=== PATIENT | female | born 1975 | race African-American/Black ===

== ENCOUNTER 2023-06-29 21:00 | Emergency (ER) | payer OTHER, SELFPAY ==
--- NOTE | ~2023-06-29 | CT_ITS ---
EXAMINATION: CT ABDOMEN AND PELVIS WITH CONTRAST CLINICAL INFORMATION: Right lower quadrant, right flank pain. COMPARISON: None available. TECHNIQUE: Multidetector volumetric images were obtained from the superior aspect of the liver through the pubic symphysis following administration 85 mL of Omnipaque 350 intravenous contrast. Sagittal and coronal reformatted images were obtained on the technologist's workstation. Oral contrast: No This CT examination was performed using dose optimization techniques as appropriate, variously including the following: *Automated exposure control *Adjustment of mA and/or kV according to patient size (this includes techniques or standardized protocols for targeted exams where dose is matched to indication/reason for exam; i.e. extremities or head) *Use of iterative reconstruction technique DLP: 745 mGy-cm FINDINGS: LUNG BASES: The visualized lung bases are unremarkable. LIVER, GALLBLADDER, AND BILIARY TREE: The liver is normal in size, shape, and attenuation. No focal hepatic lesion or biliary ductal dilatation is present. The gallbladder is unremarkable with no evidence of radiopaque gallstones, gallbladder wall thickening, or obvious pericholecystic inflammatory changes. PANCREAS: Unremarkable. SPLEEN: Unremarkable. ADRENAL GLANDS: Unremarkable. KIDNEYS AND URETERS: The kidneys are normal in size, shape, and attenuation. No hydronephrosis, hydroureter, or calculi seen. No perinephric stranding. BLADDER: Unremarkable. GASTROINTESTINAL TRACT: The small and large bowel are unremarkable. The appendix is unremarkable. ABDOMINAL WALL: No significant hernia is appreciated. LYMPH NODES: Normal. VASCULAR: Unremarkable. PELVIC VISCERA: The uterus and adnexa are unremarkable. OSSEOUS STRUCTURES: No acute or suspicious osseous abnormality. Degenerative change at L5-S1 with vacuum disc phenomenon. CT/CT abdomen pelvis w IV con IMPRESSION: No acute findings in the abdomen or pelvis. No inflammatory changes. Normal appendix. Fleischner guidelines were followed.
[2023-06-29 21:06] VITALS: BP 154/90; PULSE 80; O2SAT 98
[2023-06-29 21:37] VITALS: BP 142/87; PULSE 69; RESP 16; TEMP 36.4; O2SAT 100; BMI 32.0
[2023-06-29 22:27] LABS: MANUAL DIFF FLAG NO
[2023-06-29 22:35] LABS: Basophils Absolute Auto 0.1 X10*3/uL (0.0-0.2); Basophils Percent Auto 1.2 % (0-2); Eosinophils Absolute Auto 0.7 X10*3/uL (0.0-0.4); Hematocrit 35.4 % (37.0-47.0); Hemoglobin 11.3 g/dl (12.0-16.0); Imm Gran Abs Auto 0.03 X10*3/uL (0.00-0.03); Imm Gran Pct Auto 0.4 % (0.0-0.4); Lymphocytes Percent Auto 36.2 % (20-40); Mean Corpuscular HGB Conc 31.9 g/dl (31.0-35.0); Mean Corpuscular Hemoglobin 23.8 pg (27.0-33.0); Mean Corpuscular Volume 74.7 fL (80.0-98.0); Monocytes Absolute Auto 0.5 X10*3/uL (0.1-1.2); Monocytes Percent Auto 6.6 % (2-11); Neutrophils Absolute Auto 3.9 x10*3/uL (2.0-8.3); Neutrophils Percent Auto 47.6 % (45-73); Platelet Count 396 X10*3/uL (160-400); Red Blood Count 4.74 X10*6/uL (4.20-5.50); Red Cell Distribution Width 15.6 % (11.0-16.0); White Blood Count 8.2 X10*3/uL (4.8-10.8)
[2023-06-29 22:42] LABS: Alanine Aminotransferase 10 U/L (0-31); Alkaline Phosphatase 84 U/L (39-117); Anion Gap 13 (12-20); Aspartate Amino Transferase 11 U/L (5-31); Bilirubin Total 0.4 mg/dL (0.0-1.0); Blood Urea Nitrogen 15 mg/dL (9-16); Calcium 9.8 mg/dL (8.4-10.2); Carbon Dioxide 25 mmol/L (22-29); Chloride 103 mmol/L (96-108); Creatinine Clr Calc Pharmacy 99.3; Estimated Glomerular Filt Rate > 60; Glucose Random 204 mg/dL (60-115); Potassium 4.9 mmol/L (3.3-5.1); Sodium 136 mmol/L (135-145); Total Protein 7.6 g/dL (6.5-8.0)
[2023-06-30 01:36] VITALS: BP 135/81; PULSE 72; RESP 17; TEMP 37.1; O2SAT 99
--- NOTE | 2023-06-30 03:27 | ED.ABDPAIN ---
HPI - Abdominal Pain General Chief Complaint: Abdominal Pain Stated Complaint: abd pain Time Seen by Provider: 06/30/23 03:06 Source: patient and family () Mode of arrival: EMS Limitations: language barrier (Patient speaks Beninese Creole, iPad Beninese Creole electronic die maker used) History of Present Illness HPI narrative: 48-year-old female who presents emergency department for evaluation of sudden onset of abdominal pain that began at 19:00 hours. Patient states the pain started suddenly on her right lower quadrant area and right flank area. She describes the pain is intermittent, cramping, gas like pain which is 8/10 at its worst. This is her 1st episode of this type of pain. She denied fever, chills, chest pain, shortness of breath, dyspnea on exertion. She had no nausea vomiting. She did have 3 loose diarrheal stools in the emergency department. She did note urinary frequency but no dysuria. She denied any dark black stools or bloody stools. Related Data Previous Rx's Medication Instructions Recorded acetaminophen 500 mg tablet 500 mg PO Q6H PRN fever or pain 06/30/23 (Tylenol Extra Strength) #30 tabs ibuprofen 400 mg tablet 400 mg PO TID PRN fever or pain 06/30/23 #30 tabs ondansetron 4 mg disintegrating 4 mg PO Q6-8H PRN nausea and 06/30/23 tablet vomiting #14 tabs Allergies Allergy/AdvReac Type Severity Reaction Status Date / Time No Known Allergies Allergy Verified 06/30/23 03:23 Review of Systems Review of Systems Yes all other systems are reviewed and are negative [facility] Past Medical History [facility] Narrative: Past medical history: Hypertension with 2 years prior. Surgical history: None. Social history: She denies tobacco, alcohol and drug use. Social History Social History Smoked in Last 30 Days: No Use of substances other than those prescribed or required for medical reasons: No Advance Directives: No Advance Directives Information Provided: Yes Physical Exam ED Vital Signs: Vital Signs - 24 hr 06/29/23 21:37 06/30/23 01:36 06/30/23 04:00 Temperature 97.5 F 98.7 F Pulse Rate 69 72 68 Respiratory Rate 16 17 20 Blood Pressure 142/87 H 135/81 150/65 H Pulse Oximetry 100 99 98 Oxygen Delivery Method Room Air Room Air Room Air 06/30/23 06:23 Temperature 98.3 F Pulse Rate 75 Respiratory Rate 16 Blood Pressure 146/80 H Pulse Oximetry 100 Oxygen Delivery Method Room Air BMI result Body Mass Index 32.0 Vital signs were normal Exam: General: Awake, alert in no distress, elevated BMI 32.0 Head: Normocephalic, atraumatic EENT: PERRL, Lids normal, sclera normal, conjunctiva normal, nose normal , ears normal, throat without erythema or exudates Neck: Supple, no adenopathy, trachea midline and nontender Lung: breath sounds symmetric, no wheezing, rales or rhonchi Chest: symmetric movement, nontender Heart: regular rate and rhythm, normal S1, S2 no murmurs or rubs Abdomen: soft, moderate right lower quadrant tenderness, mild epigastric tenderness, nondistended, normal bowel sounds Back: no vertebral tenderness, mild right CVAT, no left CVA tenderness Extremities: no deformities, moves all extremities symmetrically Skin: no rashes, no lesion, normal color and warmth Neuro: Awake, alert, oriented, normal speech, cranial nerves intact, moves all extremities symmetrically Psych: Pleasant, cooperative Medical Decision Making Medical Decision Making MDM Narrative: 48-year-old female with no significant past medical or surgical history who presents emergency department for evaluation of sudden onset of right lower quadrant and right flank pain which began at 19:00 hours. She states the pain is been intermittent and she describes the pain as a cramping/gas like pain. This is a 1st episode of this type of pain. The pain was 8 out 10 its worst. She did have associated frequency but no dysuria. She had 3 episodes of diarrhea with no dark stools or bloody stools. Patient's vital signs were normal. Patient's exam did reveal moderate right lower quadrant tenderness and mild to moderate right flank/CVA tenderness. Following evaluation was ordered: CBC, CMP, lipase, quantitative beta-hCG, urinalysis, CT scan of the abdomen pelvis with IV contrast. I ordered Toradol 15 mg IV for her pain and Zofran 4 mg IV. She also received normal saline x1 L. 0634: Patient's laboratory evaluation was unremarkable. Patient's CT scan of the abdomen pelvis with IV contrast did not reveal a clear cause for the patient's pain, patient's appendix was visualized and appear to be normal. No renal or ureteral stones were noted. The patient states she is feeling better after the above treatment. This time I do not have a clear etiology for the patient's pain. Patient was prescribed ibuprofen, Tylenol and Zofran. She was given printed and verbal instructions and discharged home. Differential Diagnosis Differential Diagnoses: The differential diagnosis associated with the presentation includes Differential diagnosis includes was not limited to urinary tract infection, pyelonephritis, renal colic, ureteral colic, ureteral stone, appendicitis, pancreatitis, anemia, electrolyte abnormality Admission/Observation Consideration of admission/observation: Escalation of care including admission/observation considered Lab Data MDM Lab Attestation statement: I reviewed the patient's lab results. My interpretation the patient's laboratory evaluation is as follows: WBC was normal 8200. Anemia with an H&H of 11.3 and 35.4. Platelet count was normal. Glucose was elevated to 0 4. Quantitative beta hCG was below detectable limits. Urinalysis revealed 3+ leukocyte esterase. Microscopic revealed 0-2 RBCs, greater than 50 WBCs, 10-20 squamous cells 1+ bacteria-this is not a clean-catch specimen. 06/29/23 22:22 06/29/23 22:22 Labs: Lab Results 06/29/23 06/29/23 06/30/23 Range/Units 22:22 22:22 03:40 WBC 8.2 (4.8-10.8) X10*3/uL RBC 4.74 (4.20-5.50) X10*6/uL Hgb 11.3 L (12.0-16.0) g/dl Hct 35.4 L (37.0-47.0) % MCV 74.7 L (80.0-98.0) fL MCH 23.8 L (27.0-33.0) pg MCHC 31.9 (31.0-35.0) g/dl RDW 15.6 (11.0-16.0) % Plt Count 396 (160-400) X10*3/uL MPV 9.0 L (9.4-12.3) fL Immature Gran % (Auto) 0.4 (0.0-0.4) % Neut % (Auto) 47.6 (45-73) % Lymph % (Auto) 36.2 (20-40) % Thomas % (Auto) 6.6 (2-11) % Eos % (Auto) 8.0 H (0-4) % Baso % (Auto) 1.2 (0-2) % Lymph # (Auto) 3.0 (1.2-4.9) X10*3/uL Thomas # (Auto) 0.5 (0.1-1.2) X10*3/uL Eos # (Auto) 0.7 H (0.0-0.4) X10*3/uL Baso # (Auto) 0.1 (0.0-0.2) X10*3/uL Abs Immat Gran (auto) 0.03 (0.00-0.03) X10*3/uL Absolute Neuts (auto) 3.9 (2.0-8.3) x10*3/uL Absolute Nucleated RBC 0.000 (0.0-0.012) X10*3/uL Nucleated RBC % (auto) 0.0 (0.0-0.2) /100WBC Sodium 136 (135-145) mmol/L Potassium 4.9 (3.3-5.1) mmol/L Chloride 103 (96-108) mmol/L Carbon Dioxide 25 (22-29) mmol/L Anion Gap 13 (12-20) BUN 15 (9-16) mg/dL Creatinine 0.80 (0.5-1.4) mg/dL Estim Creat Clear Calc 99.3 Estimated GFR > 60 Random Glucose 204 H (60-115) mg/dL Calcium 9.8 (8.4-10.2) mg/dL Total Bilirubin 0.4 (0.0-1.0) mg/dL AST 11 (5-31) U/L ALT 10 (0-31) U/L Alkaline Phosphatase 84 (39-117) U/L Total Protein 7.6 (6.5-8.0) g/dL Albumin 4.0 (3.5-5.0) g/dL Lipase 18 (8-78) U/L Beta HCG, Quant < 2 mIU/mL Urine Color Yellow Urine Appearance Cloudy Urine pH 5.5 (5.0-9.0) Ur Specific [place] 1.010 (1.005-1.025) Urine Protein Negative (Neg-Trace) mg/dL Urine Glucose (UA) Negative (Negative) mg/dL Urine Ketones Negative (Negative) mg/dL Urine Blood Negative (Negative) Urine Nitrite Negative (Negative) Ur Leukocyte Esterase Large (3+) H (Negative) Urine RBC 0-2 (0-2) /HPF Urine WBC >50 H (0-5) /HPF Ur Squamous Epith Cells 11-20 (0-2) /HPF Urine Bacteria 1+ (None Seen) Hyaline Casts 0-2 (0-2) /LPF Urine Test 06/30/23 Range/Units 03:40 WBC (4.8-10.8) X10*3/uL RBC (4.20-5.50) X10*6/uL Hgb (12.0-16.0) g/dl Hct (37.0-47.0) % MCV (80.0-98.0) fL MCH (27.0-33.0) pg MCHC (31.0-35.0) g/dl RDW (11.0-16.0) % Plt Count (160-400) X10*3/uL MPV (9.4-12.3) fL Immature Gran % (Auto) (0.0-0.4) % Neut % (Auto) (45-73) % Lymph % (Auto) (20-40) % Thomas % (Auto) (2-11) % Eos % (Auto) (0-4) % Baso % (Auto) (0-2) % Lymph # (Auto) (1.2-4.9) X10*3/uL Thomas # (Auto) (0.1-1.2) X10*3/uL Eos # (Auto) (0.0-0.4) X10*3/uL Baso # (Auto) (0.0-0.2) X10*3/uL Abs Immat Gran (auto) (0.00-0.03) X10*3/uL Absolute Neuts (auto) (2.0-8.3) x10*3/uL Absolute Nucleated RBC (0.0-0.012) X10*3/uL Nucleated RBC % (auto) (0.0-0.2) /100WBC Sodium (135-145) mmol/L Potassium (3.3-5.1) mmol/L Chloride (96-108) mmol/L Carbon Dioxide (22-29) mmol/L Anion Gap (12-20) BUN (9-16) mg/dL Creatinine (0.5-1.4) mg/dL Estim Creat Clear Calc Estimated GFR Random Glucose (60-115) mg/dL Calcium (8.4-10.2) mg/dL Total Bilirubin (0.0-1.0) mg/dL AST (5-31) U/L ALT (0-31) U/L Alkaline Phosphatase (39-117) U/L Total Protein (6.5-8.0) g/dL Albumin (3.5-5.0) g/dL Lipase (8-78) U/L Beta HCG, Quant mIU/mL Urine Color Urine Appearance Urine pH (5.0-9.0) Ur Specific [place] (1.005-1.025) Urine Protein (Neg-Trace) mg/dL Urine Glucose (UA) (Negative) mg/dL Urine Ketones (Negative) mg/dL Urine Blood (Negative) Urine Nitrite (Negative) Ur Leukocyte Esterase (Negative) Urine RBC (0-2) /HPF Urine WBC (0-5) /HPF Ur Squamous Epith Cells (0-2) /HPF Urine Bacteria (None Seen) Hyaline Casts (0-2) /LPF Urine Test Cancelled Radiology Impression Discussion of test interpretation with radiology: I have reviewed the radiologist's reading. Radiologist Impression: CT abdomen pelvis w IV con FINDINGS: LUNG BASES: The visualized lung bases are unremarkable. LIVER, GALLBLADDER, AND BILIARY TREE: The liver is normal in size, shape, and attenuation. No focal hepatic lesion or biliary ductal dilatation is present. The gallbladder is unremarkable with no evidence of radiopaque gallstones, gallbladder wall thickening, or obvious pericholecystic inflammatory changes. PANCREAS: Unremarkable. SPLEEN: Unremarkable. ADRENAL GLANDS: Unremarkable. KIDNEYS AND URETERS: The kidneys are normal in size, shape, and attenuation. No hydronephrosis, hydroureter, or calculi seen. No perinephric stranding. BLADDER: Unremarkable. GASTROINTESTINAL TRACT: The small and large bowel are unremarkable. The appendix is unremarkable. ABDOMINAL WALL: No significant hernia is appreciated. LYMPH NODES: Normal. VASCULAR: Unremarkable. PELVIC VISCERA: The uterus and adnexa are unremarkable. OSSEOUS STRUCTURES: No acute or suspicious osseous abnormality. Degenerative change at L5-S1 with vacuum disc phenomenon. IMPRESSION: No acute findings in the abdomen or pelvis. No inflammatory changes. Normal appendix. Fleischner guidelines were followed. Dictated By:Roger Coffey MD Independent Historian Clinical information obtained from an independent historian. History obtained from or confirmed by: Spouse Prescription Management I considered prescription management with: Pain Medication and Other (Antiemetics) Chronic Conditions Patient?s care impacted by: Hypertension Medications Administered Discontinued Medications Generic Name Dose Route Start Last Admin Trade Name Freq PRN Reason Stop Dose Admin Sodium Chloride 1,000 mls @ 999 mls/hr 06/30/23 03:26 06/30/23 03:48 Ns IV 06/30/23 04:26 999 mls/hr .Q1H1M STA Administration Iohexol 85 ml 06/30/23 04:22 06/30/23 04:22 Iohexol 350 Mg/Ml 100 Ml Infus..Btl IV 06/30/23 04:23 85 ml ONCE ONE Administration Ketorolac Tromethamine 15 mg 06/30/23 03:26 06/30/23 03:48 Ketorolac Tromethamine 15 Mg/Ml Vial IVPUSH 06/30/23 03:27 15 mg ONCE STA Administration Ondansetron HCl 4 mg 06/30/23 03:26 06/30/23 03:48 Ondansetron Hcl 4 Mg/2 Ml Vial IVPUSH 06/30/23 03:27 4 mg ONCE ONE Administration Discharge Plan Discharge Clinical Impression: Abdominal pain Patient Disposition: Home, Self-Care Instructions: Abdominal Pain (ED) Additional Instructions: Your blood work was normal. The CT scan of your abdomen pelvis with IV contrast did not reveal a clear cause for your pain. This is reassuring. Take Zofran ODT 4 mg pills, 1 pill dissolved in your mouth every 8 hours as needed for nausea and vomiting. Take ibuprofen 200 mg pills, 2 pills every 6 hours as needed for pain or fever. Take Tylenol (acetaminophen) 500 mg pills, 2 pills every 6 hours as needed for pain or fever. Follow-up with your doctor in 2 days. Please return to the emergency department if your symptoms get worse or if you develop any symptoms that are concerning to you. I sent your prescriptions to our Outpatient Pharmacy([facility]). You should pick these medications up when you leave the emergency department Prescriptions: New acetaminophen [Tylenol Extra Strength] 500 mg tablet 500 mg PO Q6H PRN (Reason: fever or pain) Qty: 30 0RF ibuprofen 400 mg tablet 400 mg PO TID PRN (Reason: fever or pain) Qty: 30 0RF ondansetron 4 mg tablet,disintegrating 4 mg PO Q6-8H PRN (Reason: nausea and vomiting) Qty: 14 0RF
[2023-06-30 03:44] LABS: Lipase 18 U/L (8-78)
[2023-06-30] MEDS: Ketorolac Tromethamine 15 MG/ML VIAL IVPUSH (03:48)
[2023-06-30] MEDS: ondansetron HCL 4 MG/2 ML VIAL IVPUSH (03:48)
[2023-06-30] MEDS: 0.9 % Sodium Chloride 1,000 ML 999 ML IV (03:48)
[2023-06-30 03:51] LABS: HCG Quantitative < 2 mIU/mL
[2023-06-30 04:00] VITALS: BP 150/65; PULSE 68; RESP 20; O2SAT 98
[2023-06-30 04:05] LABS: Appearance Urine Cloudy; Color Urine Yellow; Glucose Urine UA Negative (Negative); Leukocyte Esterase Urine Large (3+) (Negative); Nitrite Urine Negative (Negative); PH 5.5 (5.0-9.0); UMIC TRIGGER UACC YES; Urine Blood Negative (Negative); Urine Ketones Negative (Negative); Urine Protein Negative (Neg-Trace)
[2023-06-30 04:10] LABS: Bacteria Urine 1+ (None Seen); Hyaline Casts Urine 0-2 /LPF (0-2); RBC Urine 0-2 /HPF (0-2); UACC Culture Trigger YES; WBC Urine >50 /HPF (0-5)
[2023-06-30] MEDS: iohexoL 350 MG/ML 100 ML INFUS..BTL 85 ML IV (04:22)
--- NOTE | 2023-06-30 04:46 | PC.NURSE ---
this rn and dr barraza at bedside for assessment. ipad grounds/maintenance specialist utilized for assessment in [facility]. pt provided urine sample. this rn placed 20g iv in R AC. pt medicated according to mar. pt at bedside pt awaiting ct scan
[2023-06-30 06:23] VITALS: BP 146/80; PULSE 75; RESP 16; TEMP 36.8; O2SAT 100
--- NOTE | 2023-06-30 07:35 | PC.NURSE ---
assumed care of pt at 0700. pt discharged upon report, awaiting transportation plan for pt back to home with . called hospital transportation van x2, spoke with staff member second time calling and was told they were going to call back with a schedueled time for pt. awaiting call back. will follow up
[2023-06-30 08:24] VITALS: BP 105/61; PULSE 75; RESP 16; TEMP 36.9; O2SAT 100
[2023-06-30 09:21] VITALS: BP 124/68; PULSE 70; RESP 20; TEMP 36.7; O2SAT 99
--- NOTE | 2023-06-30 09:25 | PC.NURSE ---
lang interpreter services on way to bring iPad
--- NOTE | 2023-06-30 09:25 | PC.NURSE ---
attempt x2 to call transport line- left voicemail- for pt ride home. notifying rn charge at this time unable to get in touch w/them. pt resting, calm, coop. no respir. distress.
--- NOTE | 2023-06-30 09:51 | PC.NURSE ---
used laila ramirez cregalileo associate professor of geology to provide discharge instructions, pt verbalized understanding, pt discharged and left facility.
--- NOTE | 2023-06-30 09:58 | PC.NURSE ---
certified court interpreter laila butcher ipad used for d/c instructions. piv out. pt calm, coop. no pain reported. VSS. walked to with family member- given van ticket and shown to main pharmacy/entrance. aox4.
== END 2023-06-30 09:53 | disposition home or self-care (01) ==
PROVIDERS: Emergency Provider Emergency Medicine Emergency Medical Services
DX: R10.2 Pelvic and perineal pain (principal); R10.31 Right lower quadrant pain; R19.7 Diarrhea, unspecified; Z79.899 Other long term (current) drug therapy
CPT/HCPCS: 36415; 74177; 80053; 81001; 81003; 83690; 84702; 85025; 87086; 99285; J1885; J2405; Q9967

== ENCOUNTER 2025-06-09 22:50 | Emergency (ER) | payer OTHER, SELFPAY ==
[2025-06-09 23:06] VITALS: BP 146/88; PULSE 84; RESP 18; O2SAT 99; BMI 37.8
[2025-06-10] MEDS: Fluorescein Sodium STRIP 1 STRIP EYE-LEFT (00:22)
[2025-06-10] MEDS: Tetracaine HCl/PF 0.5% Oph Sol 4 ML DROPS 3 DROP EYE-BOTH (00:23)
--- NOTE | 2025-06-10 00:34 | ED.EYEPROB ---
HPI - Eye Problem General Chief complaint: Eye Problems Stated complaint: poked in the left eye Time Seen by Provider: 06/09/25 23:26 Source: patient and hourly sign language interpreter Mode of arrival: ambulatory Limitations: language barrier History of Present Illness ED Provider: Dr. Mona Hairston HPI Narrative: 50-year-old female with no significant past medical history presenting with left eye pain that began 3 days ago after she was poked in the eye by 1 of her kids with a figurine. Has been having pain since that time and is now unable to open her eye fully due to the pain. When she is able to open her eyelid however, her vision is rather normal. No other injuries. Describes a frontal headache associated with the eye pain. Has been feeling well previously. Related Data Previous Rx's ?Medication ?Instructions ?Recorded acetaminophen 500 mg tablet 500 mg PO Q6H PRN fever or pain 06/30/23 (Tylenol Extra Strength) #30 tabs ibuprofen 400 mg tablet 400 mg PO TID PRN fever or pain 06/30/23 #30 tabs ondansetron 4 mg disintegrating 4 mg PO Q6-8H PRN nausea and 06/30/23 tablet vomiting #14 tabs ibuprofen 200 mg tablet 400 mg (2 x 200 mg) PO Q8H PRN 06/10/25 pain #30 tabs simethicone 180 mg capsule 180 mg PO BID PRN abdominal 06/10/25 distention #20 caps Allergies Allergy/AdvReac Type Severity Reaction Status Date / Time No Known Allergies Allergy Verified 06/09/25 23:10 Review of Systems Review of Systems: as per HPI, full review of systems performed and negative but for the above mentioned pertinent positives and negatives. [facility] Past Medical History Attestation statement: The following information was validated with the patient. (denies PMH, nonsmoker) Social History Social History Smoked in Last 30 Days: No Use of substances other than those prescribed or required for medical reasons: No Advance Directives: No Advance Directives Information Provided: Yes Physical Exam Exam: Exam: GENERAL: Ill-Appearing, appears uncomfortable. SKIN: Normal skin color for ethnicity, warm, dry, no rashes noted. HEENT:? Normocephalic, atraumatic, no stridor, dry mucous membranes, dentition intact, EOMI, PERRLA, L eye with significant chemosis, scleritis, no exudate, no corneal abrasions seen on hameed lamp exam. NECK: Soft, supple, full ROM, midline structures nontender, no step-offs, no deformities, no lymphadenopathy. CHEST: Heart regular rhythm, no murmurs, symmetric chest rise and fall. PULMONARY: Clear to auscultation bilaterally, diminished at the bases, no labored breathing, no wheezes/rhales/rhonchi. ABDOMINAL: Soft, nondistended, nontender, positive bowel sounds in all quadrants. : Deferred. MUSCULOSKELETAL: Normal tone, full range of motion, no deformities, no peripheral edema. NEURO: Alert and oriented x3, CN II through XII intact, equal strength and sensation bilateral upper and lower extremities, no focal neurologic deficits.? PSYCHIATRIC: Flat affect, fluid speech, good eye contact and appropriate demeanor. Vital Signs: Vital Signs: Last Vital Signs Temp 98.5 F 06/10/25 00:58 Pulse 84 06/10/25 00:58 Resp 18 06/10/25 00:58 BP 146/88 H 06/10/25 00:58 Pulse Ox 99 06/10/25 00:58 O2 Del Method Room Air 06/10/25 00:58 BMI result Body Mass Index 37.8 Medications Administered Discontinued Medications Generic Name Dose Route Start Last Admin Trade Name Freq PRN Reason Stop Dose Admin Fluorescein Sodium 1 strip 06/09/25 23:42 06/10/25 00:22 Fluorescein Sodium Strip EYE-LEFT 06/09/25 23:43 1 strip ONCE ONE Administration Ibuprofen 600 mg 06/10/25 00:40 06/10/25 01:02 Ibuprofen 600 Mg Tablet PO 06/10/25 00:41 600 mg ONCE ONE Administration Tetracaine HCl 3 drop 06/09/25 23:42 06/10/25 00:23 Tetracaine Hcl/Pf 0.5% Oph Lesli 4 Ml Drops EYE-BOTH 06/09/25 23:43 3 drop ONCE ONE Administration Medical Decision Making Medical Decision Making MDM Narrative: 50 year old female presenting with left eye trauma 3 days ago. Differential diagnosis includes corneal abrasion, globe rupture, retinal detachment, traumatic iritis, among others. Once her eye was anesthetized, she was able to open it completely and had 20/20 vision out of that eye. No evidence of corneal abrasion on hameed lamp exam with fluorecein stain. US performed by myself at the bedside shows no evidence of globe rupture, vitreous hemorrhage, retinal detachment. Clinical picture consistent with traumatic iritis. Plan for discharge and outpatient ophthalmology follow up. Discussed at length with patient through [place] Creole hourly sign language interpreter. Discharged in stable condition. Differential Diagnosis Differential Diagnoses: The differential diagnosis associated with the presentation includes (as above) Independent Interpretation I performed an independent interpretation of an: Ultrasound Interpretation: EMERGENCY ULTRASOUND INTERPRETATION-Limited Ophthalmic US This study was ordered, performed, and interpreted by myself. The study reveals: Impression: NO PATHOLOGY VISUALIZED Indication:?direct trauma to L eye Anterior Chamber: NO PATHOLOGY VISUALIZED Posterior Chamber: NO PATHOLOGY VISUALIZED Performed by: Mona Hairston DO Date: 06/10/25 Time: 2 CPT: 74225 ; Reference Codes? [email or web address] Independent Historian Clinical information obtained from an independent historian. History obtained from or confirmed by: Spouse Prescription Management I considered prescription management with: Pain Medication Discharge Plan Discharge Clinical Impression: Traumatic iritis, Blunt trauma of left eye Patient Disposition: Home, Self-Care Instructions: Iritis (ED) Additional Instructions: Iritis se enflamasyon nan iris la, hung koul? je ou, souvan ki koze pa yon blesi. Ou ka mireille doul?, wouj?, sansiblite a limy?, vizyon twoub, ou w? k ap flote (pwen nan vizyon ou) S?vi ak gout je ou shaw dokt? ou preskri. Asire ou ke ou lave men ou anvan ak apre ou fin itilize yo. Si ou gen nenp?t kesyon susie gout yo, tanpri mande Evite fwote je ou. Mete feliberto?t pwoteksyon, tankou feliberto?t sekirite oswa feliberto?t g?j, sitou pandan aktivite ki ka lak?z plis blesi Si ou mireille doul? ogmante, p?t vizyon, oswa nenp?t nouvo sent?m, ch?jared swen medikal imedyatman Pran soulaje doul? hobson preskripsyon shaw sa neses?, swiv enstrikchavaon susie etik?t la. Thanh gardner opere jihan si vizyon ou afekte If you do not have a primary care physician, please call the [facility] at [phone] to establish a new primary care physician. While waiting to establish a new primary care physician, you can call our walk-in Care [facility] at [phone] for nonemergency needs. Prescriptions: New ibuprofen 200 mg tablet 400 mg PO Q8H PRN (Reason: pain) Qty: 30 0RF simethicone 180 mg capsule 180 mg PO BID PRN (Reason: abdominal distention) Qty: 20 0RF No Action acetaminophen [Tylenol Extra Strength] 500 mg tablet 500 mg PO Q6H PRN (Reason: fever or pain) Qty: 30 0RF ibuprofen 400 mg tablet 400 mg PO TID PRN (Reason: fever or pain) Qty: 30 0RF ondansetron 4 mg tablet,disintegrating 4 mg PO Q6-8H PRN (Reason: nausea and vomiting) Qty: 14 0RF Interventions: ED Discharge Assessment Last Done: 06/10/25 00:58 Discharge Date/Time: 06/10/25 01:45 Print Language: Lila Frazier
[2025-06-10 00:58] VITALS: BP 146/88; PULSE 84; RESP 18; TEMP 36.9; O2SAT 99
== END 2025-06-10 01:45 | disposition home or self-care (01) ==
PROVIDERS: Emergency Provider Emergency Medicine
DX: S05.8X2A Other injuries of left eye and orbit, initial encounter (principal); H57.12 Ocular pain, left eye; H20.9 Unspecified iridocyclitis; X58.XXXA Exposure to other specified factors, initial encounter; Y93.9 Activity, unspecified; Y92.9 Unspecified place or not applicable; Y99.8 Other external cause status
CPT/HCPCS: 99283; 99284

== ENCOUNTER 2025-08-11 21:04 | Emergency (ER) | payer OTHER, SELFPAY ==
--- NOTE | ~2025-08-11 | XR_ITS ---
CLINICAL HISTORY: pain constipation 1 view abdomen Comparison: None provided Findings: No pneumoperitoneum or pneumatosis. No dilated loops of bowel or evidence for bowel obstruction. Moderate colonic stool burden visualized. Gas is identified over the expected location of the rectum. No acute fractures. IMPRESSION: 1. Nonobstructed bowel-gas pattern. 2. Moderate colonic stool burden. This document has been electronically signed by: Cj Robles MD on 08/12/2025 00:25:01
[2025-08-11 21:54] VITALS: BP 135/78; PULSE 72; RESP 16; TEMP 36.6; O2SAT 99; BMI 30.7
--- NOTE | 2025-08-11 22:07 | ECG_ITS ---
Test Reason : dizziness Blood Pressure : */* mmHG Vent. Rate : 68 BPM Atrial Rate : 68 BPM P-R Int : 190 ms QRS Dur : 90 ms QT Int : 414 ms P-R-T Axes : 25 35 50 degrees QTcB Int : 440 ms Normal sinus rhythm Normal ECG No previous ECGs available Referred By: Generic ED Physician Electronically Signed By: Davie [place]
[2025-08-11 22:27] VITALS: BP 129/78; PULSE 69; RESP 20; TEMP 36.7; O2SAT 97
[2025-08-11 22:39] LABS: MANUAL DIFF FLAG NO
[2025-08-11 22:41] LABS: Appearance Urine Clear; Glucose Urine UA >=1000 mg/dL (Negative); Hematocrit 34.8 % (37.0-47.0); Hemoglobin 11.7 g/dl (12.0-16.0); Imm Gran Abs Auto 0.01 X10*3/uL (0.00-0.03); Imm Gran Pct Auto 0.2 % (0.0-0.4); Lymphocytes Absolute Auto 2.9 X10*3/uL (1.2-4.9); Mean Corpuscular HGB Conc 33.6 g/dl (31.0-35.0); Mean Corpuscular Hemoglobin 23.9 pg (27.0-33.0); Mean Corpuscular Volume 71.2 fL (80.0-98.0); NRBC Abs Auto 0.000 X10*3/uL (0.0-0.012); NRBC Pct Auto 0.0 /100WBC (0.0-0.2); PH 5.5 (5.0-9.0); Platelet Count 325 X10*3/uL (160-400); Red Blood Count 4.89 X10*6/uL (4.20-5.50); Specific Gravity - Urine >= 1.030 (1.005-1.025); UMIC TRIGGER UACC YES; White Blood Count 5.6 X10*3/uL (4.8-10.8)
--- OUTSIDE RECORDS SUMMARY | 2025-08-11 22:53 | XMS_ITS ---
Author Name [facility] Organization Unknown Care Team Organization Name Specialty Phone Email Start Date End Da te [facility] ANTONY TUCKER Primary Care 07/22/2023 4
[2025-08-11 22:59] LABS: Alanine Aminotransferase 11 U/L (0-31); Albumin Level 3.8 g/dL (3.5-5.0); Alkaline Phosphatase 109 U/L (39-117); Anion Gap 9 (12-20); Aspartate Amino Transferase 11 U/L (5-31); Blood Urea Nitrogen 16 mg/dL (9-16); Calcium 8.9 mg/dL (8.4-10.2); Carbon Dioxide 25 mmol/L (22-29); Chloride 105 mmol/L (96-108); Creatinine Clr Calc Pharmacy 107.2; Estimated Glomerular Filt Rate > 60; Lipase 25 U/L (8-78); Potassium 4.1 mmol/L (3.3-5.1); Sodium 135 mmol/L (135-145); Total Protein 6.6 g/dL (6.5-8.0)
[2025-08-11 23:02] LABS: Troponin-I High Sensitivity < 2.7 ng/L (<3.5-17.0)
--- NOTE | 2025-08-11 23:45 | PC.NURSE ---
Assumed care pt at 1051. Pt comes with complaints of LLQ abdominal pain, intermittent pain with urination, dizziness after eating to the point she needs to lay down, and new onset of diarrhea when drinking dairy. Unsure of how long this has been going on for. pt also reports right neck stiffness for days . PT denies N/V, fevers. Reports a hx of GERD. rec'd critical lab value 433. Provider notified, new order placed, Iv line placed in left wrist and right AC. PT medicated as per EDEN fluids infusing at this time. Daughter at bedside plan of care ongoing
[2025-08-12 00:36] VITALS: BP 139/88; PULSE 65; RESP 18; TEMP 36.4; O2SAT 98
--- NOTE | 2025-08-12 00:47 | PC.NURSE ---
POC 419, provider notified. PT not in DKA and it is a new onset diagnosis. Plan for first dose of metformin in ED, new script and recommendation for follow up with PCP office.
[2025-08-12 00:51] LABS: Glucose, Whole Blood 419 mg/dL (60-115)
--- NOTE | 2025-08-12 01:40 | ED.GENADULT ---
HPI - General Adult General Chief complaint: Abdominal Pain Stated complaint: abd, neck pain Time Seen by Provider: 08/11/25 23:01 Source: patient Limitations: language barrier History of Present Illness ED Provider: Allison Castillo PA-C HPI narrative: 50-year-old female who is morbidly obese, presents with numerous complaints. Patient states she has been having left lower abdominal discomfort, it has been intermittent since earlier today, unable to describe the nature of her discomfort. Associated dysuria and diarrhea if she eats dairy. Patient also complains of right-sided neck pain, stiffness for ?days?. Denies nausea vomiting fever. Denies back pain, flank pain, history of kidney stones. Denies abdominal distention, constipation. Related Data Previous Rx's ?Medication ?Instructions ?Recorded acetaminophen 500 mg tablet 500 mg PO Q6H PRN fever or pain 06/30/23 (Tylenol Extra Strength) #30 tabs ibuprofen 400 mg tablet 400 mg PO TID PRN fever or pain 06/30/23 #30 tabs ondansetron 4 mg disintegrating 4 mg PO Q6-8H PRN nausea and 06/30/23 tablet vomiting #14 tabs ibuprofen 200 mg tablet 400 mg (2 x 200 mg) PO Q8H PRN 06/10/25 pain #30 tabs simethicone 180 mg capsule 180 mg PO BID PRN abdominal 06/10/25 distention #20 caps ketorolac 10 mg tablet 10 mg PO Q6H PRN pain #20 tabs 08/12/25 metformin 500 mg tablet 500 mg PO BIDWMEAL #60 tabs 08/12/25 Allergies Allergy/AdvReac Type Severity Reaction Status Date / Time No Known Allergies Allergy Verified 08/11/25 22:05 Review of Systems Review of Systems: Yes all other systems are reviewed and are negative Constitutional: Constitutional: Denies fatigue and Denies fever(s) ENT: Reports neck pain Cardiovascular: Cardiovascular: Denies chest pain and Denies dyspnea Respiratory: Respiratory: Denies cough and Denies dyspnea Gastrointestinal: Gastrointestinal: Reports abdominal pain, Denies bloating, Denies constipation, Denies diarrhea, Denies nausea and Denies vomiting Genitourinary: Genitourinary: Denies hematuria, Reports dysuria and Denies flank pain Musculoskeletal: Musculoskeletal: Denies back pain, Reports neck pain, Denies numbness, Denies radiating pain into limb and Denies tingling Neurologic: Denies numbness and Denies tingling Endocrine: Endocrine: Denies fatigue [facility] Past Medical History Attestation statement: The following information was validated with the patient. Physical Exam ED Vital Signs: Vital Signs - 24 hr 08/11/25 21:54 08/11/25 22:27 08/12/25 00:36 Temperature 97.9 F 98.0 F 97.6 F Pulse Rate 72 69 65 Respiratory Rate 16 20 18 Blood Pressure 135/78 129/78 139/88 Pulse Oximetry 99 97 98 Oxygen Delivery Method Room Air Room Air Room Air BMI result Body Mass Index 30.7 Const Other: Alert well-appearing Orientation/consciousness: patient oriented x3 Neck Other: Full range of motion, pain right lateral neck with movement Neck: Yes full ROM and Yes no meningeal signs Resp Effort & Inspection: normal respiratory effort Cardio Other: Normal peripheral perfusion GI Other: Abdomen is soft, obese, no objective tenderness to palpation with deep palpation no guarding General: Yes no CVA tenderness Back/Spine/Pelvis Back: no CVA tenderness Skin Other: Warm dry no rash Neuro General: patient oriented x3, gait normal, no meningeal signs, no focal motor deficits and CN's II-XI intact bilaterally Psych Other: Cooperative Medications Administered Discontinued Medications Generic Name Dose Route Start Last Admin Trade Name Freq PRN Reason Stop Dose Admin Sodium Chloride 1,000 mls @ 999 mls/hr 08/11/25 23:15 08/12/25 01:08 Ns IV 08/12/25 00:15 Infused .Q1H1M DAMIR Infusion Ketorolac Tromethamine 15 mg 08/11/25 23:07 08/11/25 23:24 Ketorolac Tromethamine 15 Mg/Ml Vial IVPUSH 08/11/25 23:08 15 mg ONCE ONE Administration Metformin HCl 500 mg 08/12/25 00:55 08/12/25 02:08 Metformin Hcl 500 Mg Tablet PO 08/12/25 00:56 500 mg ONCE ONE Administration Methocarbamol 750 mg 08/11/25 23:39 08/11/25 23:52 Methocarbamol 750 Mg Tablet PO 08/11/25 23:40 750 mg ONCE ONE Administration Medical Decision Making Medical Decision Making MDM Narrative: 50-year-old female who is morbidly obese, presents with numerous complaints. Patient states she has been having left lower abdominal discomfort, it has been intermittent since earlier today, unable to describe the nature of her discomfort. Associated dysuria and diarrhea if she eats dairy. Patient also complains of right-sided neck pain, stiffness for ?days?. Denies nausea vomiting fever. Denies back pain, flank pain, history of kidney stones. Denies abdominal distention, constipation. Problem: Obesity History: Per patient I have considered the following differential diagnoses: Pyelonephritis, renal colic, urinary tract infection, diverticulitis, constipation, meningitis, cervical strain, cervical radiculopathy Plan: Patient here with numerous complaints. In regard to the abdominal pain, screening labs including a urinalysis were obtained, she has an unremarkable exam, I am adding on a KUB. She does not warrant advanced imaging. She has no active GI symptoms including constipation. In regard to the neck pain, she has no meningeal signs, she does have pain with movement right lateral neck, she denies injury. She is not having any radicular symptoms. We will treat accordingly. I have independently reviewed the following tests: Labs: No leukocytosis, not anemic, no electrolyte abnormality, urine not infected, KUB:Findings: No pneumoperitoneum or pneumatosis. No dilated loops of bowel or evidence for bowel obstruction. Moderate colonic stool burden visualized. Gas is identified over the expected location of the rectum. No acute fractures. IMPRESSION: 1. Nonobstructed bowel-gas pattern. 2. Moderate colonic stool burden. Differential Diagnosis Differential Diagnoses: The differential diagnosis associated with the presentation includes See medical decision-making Admission/Observation Consideration of admission/observation: Escalation of care including admission/observation considered Not applicable Lab Data MDM Lab Attestation statement: I reviewed the patient's lab results. 08/11/25 22:34 08/11/25 22:34 Labs: Lab Results 08/11/25 08/12/25 Range/Units 22:34 00:47 WBC 5.6 (4.8-10.8) X10*3/uL RBC 4.89 (4.20-5.50) X10*6/uL Hgb 11.7 L (12.0-16.0) g/dl Hct 34.8 L (37.0-47.0) % MCV 71.2 L (80.0-98.0) fL MCH 23.9 L (27.0-33.0) pg MCHC 33.6 (31.0-35.0) g/dl RDW 15.6 (11.0-16.0) % Plt Count 325 (160-400) X10*3/uL MPV 9.2 L (9.4-12.3) fL Immature Gran % (Auto) 0.2 (0.0-0.4) % Neut % (Auto) 37.9 L (45-73) % Lymph % (Auto) 52.2 H (20-40) % [place] % (Auto) 6.3 (2-11) % Eos % (Auto) 2.9 (0-4) % Baso % (Auto) 0.5 (0-2) % Lymph # (Auto) 2.9 (1.2-4.9) X10*3/uL [place] # (Auto) 0.4 (0.1-1.2) X10*3/uL Eos # (Auto) 0.2 (0.0-0.4) X10*3/uL Baso # (Auto) 0.0 (0.0-0.2) X10*3/uL Abs Immat Gran (auto) 0.01 (0.00-0.03) X10*3/uL Absolute Neuts (auto) 2.1 (2.0-8.3) x10*3/uL Absolute Nucleated RBC 0.000 (0.0-0.012) X10*3/uL Nucleated RBC % (auto) 0.0 (0.0-0.2) /100WBC Sodium 135 (135-145) mmol/L Potassium 4.1 (3.3-5.1) mmol/L Chloride 105 (96-108) mmol/L Carbon Dioxide 25 (22-29) mmol/L Anion Gap 9 L (12-20) BUN 16 (9-16) mg/dL Creatinine 0.76 (0.5-1.4) mg/dL Estim Creat Clear Calc 107.2 Estimated GFR > 60 POC Glucose 419 H* (60-115) mg/dL Random Glucose 433 H* (60-115) mg/dL Calcium 8.9 D (8.4-10.2) mg/dL Total Bilirubin 0.4 (0.0-1.0) mg/dL AST 11 (5-31) U/L ALT 11 (0-31) U/L Alkaline Phosphatase 109 (39-117) U/L Troponin I High Sens < 2.7 (<3.5-17.0) ng/L Total Protein 6.6 (6.5-8.0) g/dL Albumin 3.8 (3.5-5.0) g/dL Lipase 25 (8-78) U/L Beta-Hydroxybutyrate 0.11 (0.02-0.27) mmol/L Urine Color Yellow Urine Appearance Clear Urine pH 5.5 (5.0-9.0) Ur Specific [place] >= 1.030 H (1.005-1.025) Urine Protein Negative (Neg-Trace) mg/dL Urine Glucose (UA) >=1000 H (Negative) mg/dL Urine Ketones Negative (Negative) mg/dL Urine Blood Negative (Negative) Urine Nitrite Negative (Negative) Ur Leukocyte Esterase Negative (Negative) Urine RBC 0-2 (0-2) /HPF Urine WBC 0-5 (0-5) /HPF Ur Squamous Epith Cells 0-2 (0-2) /HPF Urine Bacteria None Seen (None Seen) Hyaline Casts 0-2 (0-2) /LPF Radiology Impression Discussion of test interpretation with radiology: I have reviewed the radiologist's reading. Discharge Plan Discharge Clinical Impression: Constipation, Hyperglycemia, Strain of neck muscle Patient Disposition: Home, Self-Care Instructions: Constipation (ED), Cervical Strain (ED), Diabetic Hyperglycemia (ED) Additional Instructions: You were found to have elevated blood sugar, it is concerning that you have developed diabetes. See home care instructions. I am starting you on a medication to manage your blood sugar, you need to call your primary care provider Wednesday to schedule an appointment for further outpatient assessment and lab studies. Take the metformin as directed. The x-ray of the abdomen revealed that you are constipated. See home care instructions. Use [id number] Colace twice a day, this is a stool softener. Use sghj-bqo-bcbviov MiraLax multiple times a day, until you begin having multiple large volume bowel movements. In regard to the neck pain, you are being treated for cervical strain. See home care instructions. Use the ketorolac as needed for your discomfort, take this medication with food. Prescriptions: New metformin 500 mg tablet 500 mg PO BIDWMEAL Qty: 60 0RF ketorolac 10 mg tablet 10 mg PO Q6H PRN (Reason: pain) Qty: 20 0RF Rx Instructions: maximum total duration of 5 days from all oral, intranasal, or parenteral formulations. The patient received an IV dose of Toradol here in the emergency room No Action ibuprofen 200 mg tablet 400 mg PO Q8H PRN (Reason: pain) Qty: 30 0RF simethicone 180 mg capsule 180 mg PO BID PRN (Reason: abdominal distention) Qty: 20 0RF acetaminophen [Tylenol Extra Strength] 500 mg tablet 500 mg PO Q6H PRN (Reason: fever or pain) Qty: 30 0RF ibuprofen 400 mg tablet 400 mg PO TID PRN (Reason: fever or pain) Qty: 30 0RF ondansetron 4 mg tablet,disintegrating 4 mg PO Q6-8H PRN (Reason: nausea and vomiting) Qty: 14 0RF Interventions: ED Discharge Assessment Last Done: 08/12/25 02:35 Discharge Date/Time: 08/12/25 02:36 Print Language: Lila Frazier
--- NOTE | 2025-08-12 02:31 | PC.NURSE ---
PT vss, IV line removed, pt tolerated well- catheter intact. PT denies any pain at this time. Discharge instructions and summary given via video interpreting services. PT verbalized understanding
[2025-08-12 02:35] VITALS: BP 154/81; PULSE 70; RESP 16; TEMP 36.3; O2SAT 99
== END 2025-08-12 02:36 | disposition home or self-care (01) ==
PROVIDERS: Physician Assistant Medical; Emergency Provider Emergency Medicine
DX: R10.32 Left lower quadrant pain (principal); K59.00 Constipation, unspecified; R73.9 Hyperglycemia, unspecified; S16.1XXA Strain of muscle, fascia and tendon at neck level, initial encounter; X58.XXXA Exposure to other specified factors, initial encounter; Y93.89 Activity, other specified; Y92.89 Other specified places as the place of occurrence of the external cause; Y99.8 Other external cause status; Z79.899 Other long term (current) drug therapy
CPT/HCPCS: 36415; 74018; 80053; 81001; 82010; 82947; 83690; 84484; 85025; 93005; 96361; 96374; 99284; 99285; J1885

== ENCOUNTER → 2025-08-11 22:07 | Outpatient (BNV) | payer OTHER, SELFPAY | PROVIDERS: Emergency Provider Emergency Medicine; Visit Provider Internal Medicine Cardiovascular Disease | DX: R42 Dizziness and giddiness (principal) | CPT/HCPCS: 93010 ==

== ENCOUNTER → 2025-08-11 23:38 | Outpatient (BNV) | payer OTHER, SELFPAY | PROVIDERS: Visit Provider Radiology Diagnostic Radiology | DX: K59.00 Constipation, unspecified (principal) | CPT/HCPCS: 74018 ==

== ENCOUNTER 2025-08-25 20:51 | Emergency (ER) | payer OTHER, SELFPAY ==
--- NOTE | ~2025-08-25 | XR_ITS ---
CLINICAL HISTORY: pain 1 view abdomen Comparison: CR - XR KUB - 08/12/25 00:01 EDT Findings: No pneumoperitoneum or pneumatosis. No abnormal calcifications. No acute fractures. Moderate volume of stool throughout the colon. Nonobstructive bowel-gas pattern. IMPRESSION: Moderate volume of stool throughout the colon. Nonobstructive bowel-gas pattern. This document has been electronically signed by: Sunil Bruce DO on 08/25/2025 22:41:55
[2025-08-25 21:02] VITALS: BP 131/74; PULSE 88; RESP 18; TEMP 36.6; O2SAT 99; BMI 29.3
--- NOTE | 2025-08-25 21:03 | ED_ITS ---
HPI - General Adult General Chief complaint: Abdominal Pain Stated complaint: not feeling well high blood sugar Time Seen by Provider: 08/25/25 22:10 Source: patient Limitations: language barrier History of Present Illness ED Provider: Allison Castillo PA-C HPI narrative: 50-year-old female with suspect new diagnosis of diabetes who is morbidly obese, presents with numerous complaints. Patient states she has been having left lower abdominal discomfort, it has been intermittent x 2-3 days, unable to describe the nature of her discomfort. Denies nausea vomiting fever. Denies back pain, flank pain, history of kidney stones. Denies abdominal distention, constipation. Patient states she was seen in the emergency department with similar presentation on August 11, she was prescribed metformin, however has yet to warehouse picker her prescription. She has yet to establish primary care. Related Data Previous Rx's ?Medication ?Instructions ?Recorded acetaminophen 500 mg tablet 500 mg PO Q6H PRN fever or pain 06/30/23 (Tylenol Extra Strength) #30 tabs ibuprofen 400 mg tablet 400 mg PO TID PRN fever or p ain 06/30/23 #30 tabs ondansetron 4 mg disintegrating 4 mg PO Q6-8H PRN naus ea and 06/30/23 tablet vomiting #14 tabs ibuprofen 200 mg tablet 400 mg (2 x 200 mg) PO Q8H P RN 06/10/25 pain #30 tabs simethicone 180 mg capsule 180 mg PO BID PRN abdominal 06/10/25 distention #20 caps ketorolac 10 mg tablet 10 mg PO Q6H PRN pain #20 ta bs 08/12/25 metformin 500 mg tablet 500 mg PO BIDWMEAL #60 tabs 08/12/25 metformin 500 mg tablet 500 mg PO BIDWMEAL #60 tabs 08/26/25 Allergies Allergy/AdvReac Type Severity Reaction Status Date / Time No Known Allergies Allergy Verified 08/25/25 21:06 Physical Exam ED Vital Signs: Vital Signs - 24 hr 08/25/25 21:02 08/26/25 00:00 Temperature 97.8 F 98.1 F Pulse Rate 88 76 Respiratory Rate 18 18 Blood Pressure 131/74 128/75 Pulse Oximetry 99 99 Oxygen Delivery Method Room Air Room Air BMI result Body Mass Index 29.3 Course Course Course Narrative: This is a Rapid Medical Examination (RME) performed by Anatoly Alexander PA-C in triage. Full HPI, ROS, assessment and treatment plan per primary provider in the Main ED. Hx: 50 yo F here w/ LLQ pain, aching in character, that radiates around to her low back x 2-3 days. evaluated for similar on 07/17/25 - there was concern for new diagnosis of DM, prescribed toradol and metformin. has attempted to pick these up from the pharmacy however was told they didn't have the meds. now having worsening symptoms. Plan: labs, UA Medications Administered Discontinued Medications Generic Name Dose Route Start Last Admin Trade Name Freq PRN Reason Stop Dose Admin Sodium Chloride 1,000 mls @ 999 mls/hr 08/25/25 23:45 08/26/25 01:36 Ns IV 08/26/25 00:45 Infused .Q1H1M DAMIR Infusion Ondansetron HCl 4 mg 08/25/25 23:44 08/26/25 00:17 Ondansetron Hcl 4 Mg/2 Ml Vial IVPUSH 08/25/25 23:45 4 mg ONCE ONE Administration Medical Decision Making Medical Decision Making MDM Narrative: 50-year-old female with suspect new diagnosis of diabetes who is morbidly obese, presents with numerous complaints. Patient states she has been having left lower abdominal discomfort, it has been intermittent x 2-3 days, unable to describe the nature of her discomfort. Denies nausea vomiting fever. Denies back pain, flank pain, history of kidney stones. Denies abdominal distention, constipation. Patient states she was seen in the emergency department with similar presentation on August 11, she was prescribed metformin, however has yet to warehouse picker her prescription. She has yet to establish primary care. Problem: New diagnosis of diabetes, known constipation History: Per patient I have considered the following differential diagnoses: UTI, pyelonephritis, renal colic, pancreatitis, constipation, diverticulitis , hyperglycemia, HHS, DKA Plan: Given left-sided symptoms I have considered both pancreatitis and diverticulitis, however there was no focal palpable pain in either quadrant. The patient has no active GI symptoms at this time no fevers. Her exam was unremarkable. She is not having any urinary symptoms. Patient presented with almost identical presentation in July, she was constipated. We will obtain a KUB, screening labs were obtained already. She is hyperglycemic without evidence of electrolyte abnormality, no gap not in DKA. We will give IV fluid therapy. I have independently reviewed the following tests: Labs: No leukocytosis, not anemic, no electrolyte abnormality, blood sugar 300s, KUB:Findings: No pneumoperitoneum or pneumatosis. No abnormal calcifications. No acute fractures. Moderate volume of stool throughout the colon. Nonobstructive bowel-gas pattern. IMPRESSION: Moderate volume of stool throughout the colon. Nonobstructive bowel-gas pattern. Differential Diagnosis Differential Diagnoses: The differential diagnosis associated with the presentation includes See medical decision-making Admission/Observation Consideration of admission/observation: Escalation of care including admission/observation considered Not applicable Lab Data MDM Lab Attestation statement: I reviewed the patient's lab results. 08/25/25 21:52 08/25/25 21:52 Labs: Lab Results 08/25/25 08/25/25 Range/Units 21:52 22:21 WBC 7.1 (4.8-10.8) X10*3/uL RBC 4.92 (4.20-5.50) X10*6/uL Hgb 11.5 L (12.0-16.0) g/dl Hct 35.8 L (37.0-47.0) % MCV 72.8 L (80.0-98.0) fL MCH 23.4 L (27.0-33.0) pg MCHC 32.1 (31.0-35.0) g/dl RDW 15.4 (11.0-16.0) % Plt Count 319 (160-400) X10*3/uL MPV 9.5 (9.4-12.3) fL Immature Gran % (Auto) 0.3 (0.0-0.4) % Neut % (Auto) 44.3 L (45-73) % Lymph % (Auto) 45.8 H (20-40) % [place] % (Auto) 6.5 (2-11) % Eos % (Auto) 2.4 (0-4) % Baso % (Auto) 0.7 (0-2) % Lymph # (Auto) 3.3 (1.2-4.9) X10*3/uL [place] # (Auto) 0.5 (0.1-1.2) X10*3/uL Eos # (Auto) 0.2 (0.0-0.4) X10*3/uL Baso # (Auto) 0.1 (0.0-0.2) X10*3/uL Abs Immat Gran (auto) 0.02 (0.00-0.03) X10*3/uL Absolute Neuts (auto) 3.1 (2.0-8.3) x10*3/uL Absolute Nucleated RBC 0.000 (0.0-0.012) X10*3/uL Nucleated RBC % (auto) 0.0 (0.0-0.2) /100WBC Sodium 136 (135-145) mmol/L Potassium 3.9 (3.3-5.1) mmol/L Chloride 104 (96-108) mmol/L Carbon Dioxide 25 (22-29) mmol/L Anion Gap 11 L (12-20) BUN 20 H (9-16) mg/dL Creatinine 1.37 (0.5-1.4) mg/dL Estim Creat Clear Calc 58.1 Estimated GFR 41 Random Glucose 356 H* (60-115) mg/dL Calcium 9.0 (8.4-10.2) mg/dL Magnesium 1.7 (1.6-2.6) mg/dL Total Bilirubin 0.5 (0.0-1.0) mg/dL AST 23 (5-31) U/L ALT 11 (0-31) U/L Alkaline Phosphatase 103 (39-117) U/L Total Protein 6.4 L (6.5-8.0) g/dL Albumin 3.8 (3.5-5.0) g/dL Lipase 22 (8-78) U/L COVID-19 ([place]) Negative (Negative) COVID-19 Clin Com See Note Influenza Type A ([place]) Negative (Negative) Influenza Type B ([place]) Negative (Negative) Influenza A & B Note See Note Radiology Impression Discussion of test interpretation with radiology: I have reviewed the radiologist's reading. Discharge Plan Discharge Clinical Impression: Constipation, Hyperglycemia Patient Disposition: Home, Self-Care Instructions: Constipation (ED), Diabetic Hyperglycemia (ED) Additional Instructions: You were found to have elevated blood sugar, it is concerning that you have developed diabetes. See home care instructions. I am starting you on a medication to manage your blood sugar, you need to call your primary care provider Wednesday to schedule an appointment for further outpatient assessment and lab studies. Take the metformin as directed. You will become very sick if you do not manage your diabetes. Call your insurance company, they can help you to obtain primary care. I am providing you with a list of local clinics that you can call to establish primary care. The x-ray of the abdomen revealed that you are constipated. See home care instructions. Use [id number]-zyh-iqgfcoz Colace twice a day, this is a stool softener. Use rifr-wcj-eexneux MiraLax multiple times a day, until you begin having multiple large volume bowel movements. Prescriptions: New metformin 500 mg tablet 500 mg PO BIDWMEAL Qty: 60 0RF No Action ibuprofen 200 mg tablet 400 mg PO Q8H PRN (Reason: pain) Qty: 30 0RF simethicone 180 mg capsule 180 mg PO BID PRN (Reason: abdominal distention) Qty: 20 0RF acetaminophen [Tylenol Extra Strength] 500 mg tablet 500 mg PO Q6H PRN (Reason: fever or pain) Qty: 30 0RF ibuprofen 400 mg tablet 400 mg PO TID PRN (Reason: fever or pain) Qty: 30 0RF ondansetron 4 mg tablet,disintegrating 4 mg PO Q6-8H PRN (Reason: nausea and vomiting) Qty: 14 0RF metformin 500 mg tablet 500 mg PO BIDWMEAL Qty: 60 0RF ketorolac 10 mg tablet 10 mg PO Q6H PRN (Reason: pain) Qty: 20 0RF Rx Instructions: maximum total duration of 5 days from all oral, intranasal, or parenteral formulations. The patient received an IV dose of Toradol here in the emergency room Interventions: ED Discharge Assessment Last Done: 08/26/25 02:35 Discharge Date/Time: 08/26/25 02:44 Print Language: Lila Frazier
[2025-08-25 22:00] LABS: MANUAL DIFF FLAG NO
[2025-08-25 22:19] LABS: Alanine Aminotransferase 11 U/L (0-31); Albumin Level 3.8 g/dL (3.5-5.0); Alkaline Phosphatase 103 U/L (39-117); Anion Gap 11 (12-20); Aspartate Amino Transferase 23 U/L (5-31); Blood Urea Nitrogen 20 mg/dL (9-16); Calcium 9.0 mg/dL (8.4-10.2); Carbon Dioxide 25 mmol/L (22-29); Chloride 104 mmol/L (96-108); Creatinine Clr Calc Pharmacy 58.1; Estimated Glomerular Filt Rate 41; Hematocrit 35.8 % (37.0-47.0); Hemoglobin 11.5 g/dl (12.0-16.0); Imm Gran Abs Auto 0.02 X10*3/uL (0.00-0.03); Imm Gran Pct Auto 0.3 % (0.0-0.4); Lipase 22 U/L (8-78); Lymphocytes Absolute Auto 3.3 X10*3/uL (1.2-4.9); Magnesium 1.7 mg/dL (1.6-2.6); Mean Corpuscular HGB Conc 32.1 g/dl (31.0-35.0); Mean Corpuscular Hemoglobin 23.4 pg (27.0-33.0); Mean Corpuscular Volume 72.8 fL (80.0-98.0); NRBC Abs Auto 0.000 X10*3/uL (0.0-0.012); NRBC Pct Auto 0.0 /100WBC (0.0-0.2); Platelet Count 319 X10*3/uL (160-400); Potassium 3.9 mmol/L (3.3-5.1); Red Blood Count 4.92 X10*6/uL (4.20-5.50); Sodium 136 mmol/L (135-145); Total Protein 6.4 g/dL (6.5-8.0); White Blood Count 7.1 X10*3/uL (4.8-10.8)
[2025-08-25 23:07] LABS: IDNOW Serial# 152EDE1D; Influenza B2 Negative (Negative)
[2025-08-25 23:08] LABS: COVID-19 Test Negative (Negative); IDNOW Serial# 16C4AD1C
[2025-08-26] VITALS: BP 128/75; PULSE 76; RESP 18; TEMP 36.7; O2SAT 99
--- NOTE | 2025-08-26 00:21 | PC.NURSE ---
Iv placed in Right Ac 20g, Medicated per jan.
[2025-08-26 02:35] VITALS: BP 128/75; PULSE 76; RESP 18; TEMP 36.7; O2SAT 99
--- NOTE | 2025-08-26 02:43 | PC.NURSE ---
Iv removed, reviewed discharge instructions with pt. pt verbalized understanding. no sign of distress.
== END 2025-08-26 02:44 | disposition home or self-care (01) ==
PROVIDERS: Physician Assistant Medical; Emergency Provider Emergency Medicine
DX: K59.00 Constipation, unspecified (principal); E11.65 Type 2 diabetes mellitus with hyperglycemia; R11.0 Nausea; R10.32 Left lower quadrant pain; Z79.899 Other long term (current) drug therapy; Z11.52 Encounter for screening for COVID-19
CPT/HCPCS: 36415; 74018; 80053; 83690; 83735; 85025; 87502; 87635; 96361; 96374; 99284; J2405

== ENCOUNTER → 2025-08-25 22:10 | Outpatient (BNV) | payer OTHER, SELFPAY | PROVIDERS: Visit Provider Family Medicine | DX: R10.32 Left lower quadrant pain (principal) | CPT/HCPCS: 74018 ==